=== PATIENT | male | born 1980 | race Caucasian/White ===

== ENCOUNTER 2016-11-10 20:15 | Emergency (ER) | payer OTHER ==
[~2016-11-10] VITALS: Ht 175.3 cm; Wt 74.0 kg
[2016-11-10] MEDS ORDERED: HALOPERIDOL LACTATE 5 MG/ML AMP IM ONE (20:30)
[2016-11-10] MEDS ORDERED: LORazepam 2 MG/ML VIAL IM ONE (20:30)
[2016-11-10] MEDS ORDERED: TETANUS/DIPHTHERIA TOXOID ADULT 0.5 ML VIAL IM ONE (20:30)
[2016-11-10] MEDS ORDERED: diphenhydrAMINE HCL 50 MG/ML VIAL IM ONE (20:30)
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
[2016-11-10 21:36] VITALS: BP 127/74; PULSE 101; RESP 18; TEMP 98.2; O2SAT 97
[2016-11-10 21:47] LABS: AUTOMATED NEUTROPHIL # 6.7 TH/MM3 (1.8-7.7); BASOPHIL # 0.1 TH/MM3 (0-0.2); BASOPHIL % 0.8 % (0.0-2.0); EOSINOPHIL # 0.6 TH/MM3 (0-0.4); EOSINOPHIL % 5.4 % (0.0-4.0); HEMO FLAGS DIFF FINAL; LYMPH % 22.3 % (9.0-44.0); LYMPHOCYTE # 2.3 TH/MM3 (1.0-4.8); MEAN CELL VOLUME 90.1 FL (80.0-100.0); MEAN CORPUSCULAR HEMOGLOBIN 30.2 PG (27.0-34.0); MEAN CORPUSCULAR HGB CONC 33.5 % (32.0-36.0); MONO % 6.1 % (0.0-8.0); NEUT % 65.4 % (16.0-70.0); PLATELET COUNT 275 TH/MM3 (150-450); RED BLOOD COUNT 4.44 MIL/MM3 (4.50-5.90); RED CELL DISTRIBUTION WIDTH 13.4 % (11.6-17.2); WHITE BLOOD COUNT 10.3 TH/MM3 (4.0-11.0)
[2016-11-10 21:57] LABS: ANION GAP 14 MEQ/L (5-15); AST (GOT) 203 U/L (15-37); BICARBONATE 19.9 MEQ/L (21.0-32.0); BLOOD UREA NITROGEN 15 MG/DL (7-18); CHLORIDE 105 MEQ/L (98-107); GLOMERULAR FILTRATION RATE 90 ML/MIN (>89); POTASSIUM 3.2 MEQ/L (3.5-5.1); SODIUM (NA) 139 MEQ/L (136-145)
[2016-11-10 21:58] LABS: ALT (GPT) 128 U/L (12-78)
[2016-11-10 22:00] LABS: ACETAMINOPHEN LESS THAN 2.0 MCG/ML (10.0-30.0); ALKALINE PHOSPHATASE 50 U/L (45-117); TOTAL BILIRUBIN ADULT 0.2 MG/DL (0.2-1.0)
[2016-11-10 22:30] VITALS: PULSE 92; RESP 16; O2SAT 99
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
[2016-11-11 02:19] LABS: AMPHETAMINE, URINE NEG (NEG); BARBITURATES, URINE NEG (NEG); COCAINE, URINE NEG (NEG)
[2016-11-11 02:58] VITALS: BP 141/62; PULSE 78; RESP 16; O2SAT 96
== END 2016-11-11 11:24 | disposition home or self-care (01) ==
LOC: NEPD 20:15
DX: F30.9 Manic episode, unspecified (principal); F10.129 Alcohol abuse with intoxication, unspecified; F31.9 Bipolar disorder, unspecified; Z23 Encounter for immunization
CPT/HCPCS: 70450; 73590; 80053; 80307; 85025; 90471; 90714; 96372; 99285; J1200; J1630; J2060

== ENCOUNTER 2017-01-24 15:53 | Observation (INO) | payer OTHER ==
[~2017-01-24] VITALS: Ht 172.7 cm; Wt 73.0 kg
[2017-01-24 15:56] VITALS: BP 122/103; PULSE 86; RESP 18; TEMP 98.5; O2SAT 97
[2017-01-24] MEDS ORDERED: SODIUM CHLORIDE 0.9% FLUSH 10 ML FLUSH IVF PRN (16:00)
[2017-01-24 16:01] VITALS: RESP 18; O2SAT 98
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
[2017-01-24] MEDS ORDERED: ONDANSETRON HCL 4 MG/2 ML VIAL IV PUSH ONE (16:15)
[2017-01-24 16:34] LABS: AUTOMATED NEUTROPHIL # 5.8 TH/MM3 (1.8-7.7); BASOPHIL # 0.1 TH/MM3 (0-0.2); EOSINOPHIL # 0.4 TH/MM3 (0-0.4); HEMATOCRIT 43.6 % (39.0-51.0); HEMO FLAGS DIFF FINAL; LYMPH % 21.5 % (9.0-44.0); LYMPHOCYTE # 1.8 TH/MM3 (1.0-4.8); MEAN CELL VOLUME 90.9 FL (80.0-100.0); MEAN CORPUSCULAR HEMOGLOBIN 30.5 PG (27.0-34.0); MEAN CORPUSCULAR HGB CONC 33.5 % (32.0-36.0); MONO % 4.9 % (0.0-8.0); NEUT % 67.6 % (16.0-70.0); PLATELET COUNT 310 TH/MM3 (150-450); RED BLOOD COUNT 4.79 MIL/MM3 (4.50-5.90); RED CELL DISTRIBUTION WIDTH 14.3 % (11.6-17.2); WHITE BLOOD COUNT 8.6 TH/MM3 (4.0-11.0)
[2017-01-24 16:51] LABS: APTT (PATIENT) 24.1 SEC (24.3-30.1); INTERNATIONAL NORMALIZED RATIO 0.9 RATIO; PROTHROMBIN TIME - PATIENT 10.4 SEC (9.8-11.6)
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
[2017-01-24 17:02] LABS: ANION GAP 12 MEQ/L (5-15); BICARBONATE 22.5 MEQ/L (21.0-32.0); BLOOD UREA NITROGEN 7 MG/DL (7-18); CHLORIDE 104 MEQ/L (98-107); GLOMERULAR FILTRATION RATE 66 ML/MIN (>89); POTASSIUM 3.6 MEQ/L (3.5-5.1); SODIUM (NA) 138 MEQ/L (136-145)
[2017-01-24 17:06] LABS: ALCOHOL LESS THAN 3 MG/DL (0-5)
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
[2017-01-24] MEDS ORDERED: IOHEXOL 350 MG/ML 10 ML VIAL (for RAD DIAG) IVCONTRAST ONE (18:08)
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
[2017-01-24 18:58] VITALS: BP 112/53; PULSE 51; RESP 20; O2SAT 100
[2017-01-24] MEDS ORDERED: ONDANSETRON HCL 4 MG/2 ML VIAL IVP PRN (20:15)
[2017-01-24] MEDS ORDERED: FLUMAZENIL 0.5 MG/5 ML VIAL IV PUSH PRN (20:15)
[2017-01-24] MEDS ORDERED: SODIUM CHLORIDE 0.9% FLUSH 10 ML FLUSH IV FLUSH PRN (20:15)
[2017-01-24] MEDS ORDERED: LORazepam 2 MG TAB PO PRN (20:15)
[2017-01-24] MEDS ORDERED: LORazepam 2 MG/ML VIAL IV PUSH PRN ×5 (20:15→23:15)
[2017-01-24] MEDS ORDERED: LORazepam 1 MG TAB PO PRN (20:15)
[2017-01-24] MEDS ORDERED: NALOXONE HCL 0.4 MG/ML AMP IV PUSH PRN (20:15)
[2017-01-24] MEDS: SODIUM CHLORIDE 0.9% FLUSH 10 ML FLUSH IV FLUSH SCH (20:35)
[2017-01-24] MEDS: SODIUM CHLOR 0.9% 1000 ML INJ 1,000 ML IV SCH (21:07)
[2017-01-24 21:41] VITALS: BP 104/52; PULSE 69; RESP 18; TEMP 98.3; O2SAT 95
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
[2017-01-25] VITALS (7 sets, daily range): BP systolic 98–136; BP diastolic 52–68; PULSE 56–99; RESP 16–18; TEMP 98–98.6; O2SAT 96–99
[2017-01-25] MEDS ORDERED: levETIRAcetam 1000 MG INJ 100 ML IV ONE (06:00)
[2017-01-25 06:15] LABS: BASOPHIL # 0.1 TH/MM3 (0-0.2); BASOPHIL % 0.7 % (0.0-2.0); EOSINOPHIL # 0.5 TH/MM3 (0-0.4); HEMATOCRIT 40.6 % (39.0-51.0); HEMO FLAGS DIFF FINAL; LYMPH % 19.6 % (9.0-44.0); LYMPHOCYTE # 2.3 TH/MM3 (1.0-4.8); MEAN CELL VOLUME 90.8 FL (80.0-100.0); MEAN CORPUSCULAR HGB CONC 33.1 % (32.0-36.0); MONO % 7.3 % (0.0-8.0); NEUT % 68.4 % (16.0-70.0); PLATELET COUNT 246 TH/MM3 (150-450); RED BLOOD COUNT 4.47 MIL/MM3 (4.50-5.90); RED CELL DISTRIBUTION WIDTH 14.3 % (11.6-17.2); WHITE BLOOD COUNT 11.7 TH/MM3 (4.0-11.0)
[2017-01-25 06:45] LABS: ALT (GPT) 18 U/L (12-78); ANION GAP 5 MEQ/L (5-15); AST (GOT) 14 U/L (15-37); BICARBONATE 30.8 MEQ/L (21.0-32.0); BLOOD UREA NITROGEN 10 MG/DL (7-18); CHLORIDE 104 MEQ/L (98-107); GLOMERULAR FILTRATION RATE 71 ML/MIN (>89); POTASSIUM 3.5 MEQ/L (3.5-5.1); SODIUM (NA) 140 MEQ/L (136-145)
[2017-01-25 06:47] LABS: ALKALINE PHOSPHATASE 41 U/L (45-117); TOTAL BILIRUBIN ADULT 0.5 MG/DL (0.2-1.0)
[2017-01-25] MEDS: SODIUM CHLORIDE 0.9% FLUSH 10 ML FLUSH IV FLUSH SCH ×2 (09:00→21:00)
[2017-01-25] MEDS: SODIUM CHLOR 0.9% 1000 ML INJ 1,000 ML IV SCH ×4 (09:43→22:03)
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
[2017-01-25] MEDS: levETIRAcetam 500 MG TAB PO SCH ×2 (12:15→21:03)
--- NOTE | 2017-01-25 15:51 | MG ---
cc: AZIZA TENORIO Lab No: [id number] Date: 01/25/2017 Age: Sex: M Race: TECHNIQUE 17-channel EEG. DESCRIPTION: The background rhythm reveals a symmetrical alpha rhythm, frequency is roughly 8-10 Hz. During drowsiness there is slowing in the theta range at 6 Hz. There does appear to be more prominent slowing in the delta frequency during sleep with sleep spindles present. There are no lateralizing features seen. There are no epileptiform discharges seen. Photic results in a normal driving response. INTERPRETATION This is a normal EEG. MD KELLY Lawson/MARIA G /3:29 PM /3:44 PM
--- NOTE | 2017-01-25 16:07 | RADRPT ---
EXAM DATE/TIME: 01/25/2017 15:19 [facility] COMPARISON: CT BRAIN W/O CONTRAST, January 24, 2017, 17:28. INDICATIONS : Seizures. MEDICAL HISTORY : Seizures. SURGICAL HISTORY : Eustacian tubes. ENCOUNTER: Subsequent ACUITY: 2 day PAIN SCORE: 3/10 LOCATION: cranial TECHNIQUE: Multiplanar, multisequence MRI of the brain was performed without contrast. FINDINGS: CEREBRUM: The ventricles are normal for age. No evidence of midline shift, mass lesion, hemorrhage or acute in farction. No extraaxial fluid collections are seen. The pituitary gland and suprasellar cistern are normal in configuration. WHITE MATTER: No significant signal abnormalities are seen in the white matter. POSTERIOR FOSSA: The cerebellum and brainstem are intact. The 4th ventricle is midline. The cerebellopontine angle is unremarkable. The cerebellar tonsils are normal in position. DIFFUSION IMAGING: No focal areas of restricted diffusion are seen. No evidence of acute infarction. EXTRACRANIAL: The visualized portions of the orbits are unremarkable. There is a mucous retention cyst within the l eft maxillary sinus. CONCLUSION: 1. No acute intracranial abnormality. 2. Mucus retention cyst within the left maxillary sinus. Santosh Rogel MD on January 25, 2017 at 16:02 Board Certified Radiologist. This report was verified electronically.
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
--- NOTE | 2017-01-25 20:36 | EKG ---
Date Performed: 01/24/2017 Time Performed: 16:08:50 PTAGE: 36 years EKG: Sinus rhythm NORMAL ECG NO PREVIOUS TRACING DOCTOR: Jose Enrique Bernardo Interpretating Date/Time 01/25/2017 20:34:37
[2017-01-26] VITALS: BP 93/53; PULSE 60; RESP 18; TEMP 98.2; O2SAT 96
[2017-01-26 04:27] VITALS: BP 104/55; PULSE 54; RESP 18; TEMP 98.3; O2SAT 98
[2017-01-26 07:24] VITALS: BP 96/56; PULSE 54; RESP 16; TEMP 98.1; O2SAT 98
[2017-01-26] MEDS: SODIUM CHLORIDE 0.9% FLUSH 10 ML FLUSH IV FLUSH SCH (07:47)
[2017-01-26] MEDS: levETIRAcetam 500 MG TAB PO SCH (07:47)
--- NOTE | 2017-01-26 09:40 | HHI.DCPOC ---
Discharge Care Plan Diagnosis: (1) Seizure Additional Problems seizures Goals to Promote Your Health * To prevent worsening of your condition and complications * To maintain your health at the optimal level DO NOT DRIVE OR OPERATE ANY HEAVY MACHINERY UNTIL CLEARED BY YOUR PRIMARY CARE DOCTOR OR NEUROLOGIST. Directions to Meet Your Goals Take your medications as prescribed Follow your dietary instruction Follow activity as directed Keep your appointments as scheduled Take your immunizations and boosters as scheduled If your symptoms worsen call your PCP, if no PCP go to Urgent Care Center or Emergency Room Smoking is Dangerous to Your Health. Avoid second hand smoke Call the 24-hour hour crisis hotline for domestic abuse at Pascual Denton MD Jan 26, 2017 09:40
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
[2017-01-26] MEDS ORDERED: LEVE500 PO (09:59)
== END 2017-01-26 11:12 | disposition home or self-care (01) ==
LOC: NEPC 15:53 → NEDA 18:24 → NEPFCDU 21:36
PROVIDERS: ADMIT Hospitalist; ATTEND Hospitalist
DX: [UNRECOGNIZED DIAGNOSIS CODE] (principal); E812.0; E849.5
CPT/HCPCS: 70450; 70551; 71010; 72125; 74177; 80048; 80053; 80307; 85025; 85610; 85730; 86850; 86900; 86901; 93005; 95819; 96361; 96365; 96366; 96375; 96376; 99285; G0378; J1953; J2060; J2405; J7030; Q9967